=== PATIENT | female | born 1945 | race African-American/Black ===

== ENCOUNTER 2023-12-24 08:21 | Outpatient (AMB) | payer OTHER, SELFPAY ==
--- NOTE | 2023-12-24 08:39 | MHC.OFFVIS ---
Intake Visit Reasons: [employer] TIME WORK[employer] Left shoulder pain Intake Note: Marcela is a 78 year old female who presents to the office today for left shoulder pain. Pt states she was seen by Dr. Lee years ago. The patient did have left shoulder rotator cuff repair surgery approximately 10 years ago. She states that she aggravated her shoulder several months ago while repetitive lifting. She denies any weakness. She has tried Tylenol and anti-inflammatory medicines which gave her minimal relief. She has been doing kejvb-dy-agziti exercises to prevent stiffness. Allergies No Known Allergies Allergy (Verified 12/24/23 09:03) Medication List - Last Reconciled 12/24/23 by Anoop Lee MD allopurinol mg PO indomethacin 50 mg PO TID lisinopril 5 mg PO DAILY metformin 500 mg PO DAILY Physical Exam Const Other: Well-nourished well-developed very friendly female awake alert and oriented x3 in no acute distress Extrem Other: Bilateral upper extremity examination shows good capillary refill, no skin lesions noted, normal sensation light touch Left shoulder examination shows that the surgical incisions are well healed, no erythema, no signs of infection, slightly decreased range of motion when compared to her right shoulder, 4/5 strength with supraspinatus testing, positive impingement signs, no instability Office Procedures Joint Injection/Aspiration Joint Injection/Aspiration Primary Site: left shoulder Prep: site was prepped using aseptic technique Injected: 40 mg of, DepoMedrol and 1% plain lidocaine Procedure: The patient tolerated the procedure well Coding 90346 - Large joint Procedure code (CPT) selection complete Results Reviewed Results Reviewed: X-rays of the patient's left shoulder show bony changes consistent with distal clavicle excision and acromioplasty, 1 suture anchor within the proximal humerus with no signs of loosening Assessment & Plan Assessment & Plan (1) Right shoulder pain: Code(s): M25.511 - Pain in right shoulder Category: Medical Plan Ms. Whiting presents with left shoulder pain most likely due to impingement syndrome and rotator cuff tendinosis. I had a lengthy discussion with the patient regarding the treatment options. The risks and benefits of a left shoulder cortisone injection were discussed at length with the patient. The patient wished to proceed. She tolerated the injection well. She will continue with her fzrtp-zh-tmpahh exercises to prevent stiffness. She will contact me prior to her follow-up appointment in 3 months should any questions or concerns arise. Feel free to call me at any time should questions regarding her orthopedic management arise. I spent 21 minutes in reviewing the patient's records and imaging studies, seeing the patient and documenting in the medical record. Orders: Orders AMB Joint Injection/Aspiration 12/24/23 M25.511 - Pain in right shoulder Coding Level of Care Code Est Pt Level 3 (05989) Diagnoses Right shoulder pain M25.511 CPT Codes Coding - 04155 Large joint: 68326 - Large joint ([id number])
== END 2023-12-24 09:35 | disposition home or self-care (01) ==
PROVIDERS: Visit Provider Orthopaedic Surgery
DX: M25.511 Pain in right shoulder (principal)
CPT/HCPCS: 20610; 99203

== ENCOUNTER 2023-12-24 13:15 | Outpatient (REF) | payer MEDICARE, SELFPAY ==
--- NOTE | ~2023-12-24 | XR_ITS ---
EXAMINATION: XR SHOULDER, LEFT CLINICAL INFORMATION: Pain. COMPARISON: None available. TECHNIQUE: AP external rotation, Grashey, scapular Y, and axillary views of the left shoulder. FINDINGS: There is bony demineralization. The glenohumeral joint is intact. The acromioclavicular and coracoclavicular intervals are normal. There is mild osteoarthritic change of the left acromioclavicular joint. No fracture or dislocation is seen. There is a distal acromial undersurface osteophyte, and there is cortical irregularity of the greater tuberosity of the proximal left humerus. An orthopedic anchor is seen within the left humeral head. No soft tissue calcification or foreign body is seen. There is no left pneumothorax. XR/XR shoulder LT min 2V IMPRESSION: 1. There is mild osteoarthritic change of the left acromioclavicular joint. 2. There are findings suggesting left rotator cuff impingement. There is an orthopedic anchor applied to the left humeral head, for which correlation with patient's Past Surgical History is recommended. Electronically signed by: Canelo Liz MD 01/15/2024 10:08 PM EDT
== END 2023-12-24 13:16 | disposition home or self-care (01) ==
LOC: HO.HOSX 13:15
PROVIDERS: Visit Provider Orthopaedic Surgery
DX: M25.511 Pain in right shoulder (principal)
CPT/HCPCS: 20610; 73030; 99202; J1010

== ENCOUNTER 2024-07-06 07:28 | Outpatient (AMB) | payer MEDICARE, SELFPAY ==
--- OUTSIDE RECORDS SUMMARY | 2024-07-06 07:31 | XMS_ITS | Data Portability ---
Author Organization [place] - [facility], Allergy Address [address] [place] [id number] Care Team Providers Care Grocery Stocker Name Role Phone MIRIAMLAMONT STANLEY Primary Care Provider Assessment Encounter Date Assessment Date Assessment LastModified by Organization Details LastModified Time 01/07/2024 01/07/2024 78-year-old female with hearing difficulties right more than left. She notes difficulty in hoahaoism and background situations. No tinnitus or vertigo. Audiogram reviewed. Very minimal asymmetry in the mid frequencies. Suggest amplification and follow-up testing in 1 year lily Not available 01/07/2024 10:39:17 Plan of Treatment Reminders Order Date Submit Date Provider Last Modified By Organization Details Last Modified Time Details Appointments None record ed. Lab None record ed. Referral None record ed. Procedures None record ed. Surgeries None record ed. Imaging None record ed. Medication Orders None record ed. Patient TargetsNo targets recorded. Patient InstructionsNo instructions recorded. Reason for Referral None Reported. Results Created Date Observation Date Name Description Value Unit Range Abnormal Flag Note LastModifiedBy Organization Detail LastModifiedTime 01/07/20 24 audio gram No observ ation record ed. BARCODE Not Available 2023 14:53:54 Result Notes None recorded. Problems Name Problem SNOMED Code Status Onset Date Resolution Date Notes Provider Name and Address Organization Details Recorded Time Abnormal auditory perception 70717969 Active 2023 HIMANSHU GUERRA MD [address], [phone] [facility] [place] - [facility] 09:39:31 Obstructive sleep apnea syndrome 99774437 Active 2023 HIMANSHU GUERRA MD 100 [facility], [place], [phone], [facility] - [facility] [address] 09:39:35 Sensorineural hearing loss of bilateral ears 933224062 Active 2023 NICK ORNELAS [place], [facility] 100 [facility], [place], [phone], [facility] - [facility] [address] 10:08:11 Problem Notes None recorded. Procedures Surgical History Date Name Laterality Status Provider Name and Address Organization Details Recorded Time Comp Audio with Tymps (63874 & 41246) completed NICK ORNELAS [place], [facility] 100 [facility], [place], [address], [place] - [facility] [address] 01/07/2024 10:07:45 excision of breast completed Aniya Pablo [place] - [facility] [address] 01/07/2024 09:06:18 partial resection of colon completed Aniya Pablo [place] - [facility] [address] 01/07/2024 09:06:47 Imaging Results Imaging Date Name Status [facility]Modified [facility] Details LastModified Time 01/07/2024 audiogram completed BARCODE Information no t available 01/07/2024 14:53:54 Procedure Notes None recorded. Medical Equipment None Reported. Allergies No known drug allergies Medications Name Sig Start Date Stop Date Status Note LastModified by Organization Details LastModified Time metformin 500 mg tablet TAKE 1 TABLET BY MOUTH EVERY DAY 01/06 completed Not Available Not Available Not Available azithromyci n 250 mg tablet TAKE 2 TABLETS BY MOUTH TODAY, THEN TAKE 1 TABLET DAILY FOR 4 DAYS DIRECTED 01/06 completed Not Available Not Available Not Available aspirin 81 mg tablet,fátima yed release TAKE 1 TABLET BY MOUTH EVERY DAY active Not Available Not Available No t Available benzonatate 100 mg capsule TAKE 1 CAPSULE BY MOUTH 3 TIMES DAILY NEEDED FOR COUGH FOR UP TO 10 DAYS. 01/06 completed Not Available Not Available Not Available indomethaci n 50 mg capsule TAKE 2 CAPSULES BY MOUTH 3 TIMES DAILY FOR 2 DAYS. active Not Available Not Available No t Available allopurinol 300 mg tablet TAKE 1 TABLET BY MOUTH EVERY DAY active Not Available Not Available No t Available lisinopril 5 mg tablet TAKE 1 TABLET BY MOUTH EVERY DAY active Not Available Not Available No t Available losartan 100 mg tablet TAKE 1 TABLET BY MOUTH EVERY DAY 01/06 completed Not Available Not Available Not Available metformin ER 500 mg tablet,exte nded release 24 hr TAKE 1 TABLET BY MOUTH EVERY DAY WITH BREAKFAST active Not Available Not Available No t Available hydrochloro thiazide 12.5 mg tablet TAKE 1 TABLET BY MOUTH EVERY DAY 01/06 completed Not Available Not Available Not Available Vitals Date Recorded Body height Body weight Provider Name and Address Organization Details Last Updated DateTime 01/07/2024 162.56 cm 936[address].11 g Aniya Pablo [place] [facility] 01/07/2024 09:02:25 Date Recorded Body mass index (BMI) Provider Name and Address Organization Details Last Updated DateTime 01/07/2024 29 kg/m2 HIMANSHU KLINE MD [address] [place] [address], [phone], [place] - [facility] 01/07/2024 09:40:05 Social History None recorded. Functional Status None recorded. Mental Status None recorded. Family History Nothing Reported. Medical History Condition Response Diabetes Y Cancer Y Hypertension Y Gynecological HistoryNo gynecological history recorded. Obstetrics History GPAL:G 0 P 0 0 0 0 Past Encounters Encounter ID Performer Location Encounter Start Date Encounter Closed Date Diagnosis/Indication Diagnosis SNOMED-CT Code Diagnosis ICD10 Code Diagnosis Note [id number] HIMANSHU KIRBY MD [facility] [address] [phone] 01/07/2024 08:48:26 01/07/2024 10:43:50 Abnormal auditory perception 65899519 H93.291 Obstructiv e sleep apnea syndrome 94522617 G47.33 Consider weight loss and positionin g therapy Sensorineu ral hearing loss of bilateral ears 168851477 H90.3 Audiologic al evaluation results: Right ear: {{Normal N ormal through 2 kHz Mild M oderate Mo derately-s evere Domitila re Profoun d Normalor derline normal sloping to mild#}} {{hearing sloping to a mild slopi ng to a moderate s loping to moderately severe slo ping to severe slo ping to profound f lat high frequency low frequency mid frequency cookie bite ray curve to moderately severe SNHL#}} {{with* se nsorineura l hearing loss with condu ctive hearing loss with mixed hearing loss with}} {{excellen t* good fa ir poor no measurable }} word recognitio n. Left ear: {{Normal N ormal through 2 kHz Mild M oderate Mo derately-s evere Domitila re Profoun d Borderli ne normal sloping to mild SNHL#}} {{hearing sloping to a mild slopi ng to a moderate s loping to moderately severe slo ping to severe slo ping to profound f lat high frequency low frequency mid frequency cookie bite ray curve drop ping to severe#}} {{with* se nsorineura l hearing loss with condu ctive hearing loss with mixed hearing loss with}} {{excellen t* good fa ir poor no measurable }} word recognitio n. Tympanomet ry: Right Ear:{{Type A* Type As Type Ad Type C Type C, shallow & rounded Ty pe B Type B with large volume Cou ld not maintain a hermetic seal}} Left Ear:{{Type A* Type As Type Ad Type C Type C, shallow & rounded Ty pe B Type B with large volume Cou ld not maintain a hermetic seal}}Rec. : Trial amplificat ion Health Concerns Section Related Observation LastModified by Organization Detai ls LastModified Time None Recorded Concern Status LastModified by Organization Details LastModified Time None Recorded Advance Directives Directive None Recorded Payers Encounter Date Sequence Insurance Name Policy Number Policy Huerta Covered Member ID Huerta Member ID Guarantor Name 01/07/2024 1 [facility] - MEDICARE PREFERRED (MEDICARE REPLACEMENT PPO) [employer] Marcela Whiting [id number] Marcela Whiting Notes Date Note Type Note Provider Name and Address Organization Details Recorded Time 01/07/2024 text/html Notes HL right more than left for more than one year. She denies tinnitus or vertigo. History of sleep apnea but intolerant of CPAP. HIMANSHU KLINE MD [address] [place] [address], [phone], [facility] 01/07/2024 10:39:31 OBGyn Episode No OBEpisode recorded.
--- OUTSIDE RECORDS SUMMARY | 2024-07-06 07:31 | XMS_ITS | Clinical Summary ---
Author Organization [place] [address] Tammy rowan [facility] Address [address] [place] [phone] Phone Care Team Providers Care Grounds Maintenance Manager Name Role Phone Eugenia Phelps DO Primary Care Provider [phone] Allergies No known active allergies Medications allopurinoL (ZYLOPRIM) 300 mg tablet Take 1 tablet (300 mg total) by mouth 1 (one) time each day. 12/23/2023 Active metFORMIN XR (GLUCOPHAGE-XR) 500 mg 24 hr tablet Take 1 tablet (500 mg total) by mouth. 12/23/2023 Active losartan (COZAAR) 100 mg tablet Take 1 tablet (100 mg total) by mouth 1 (one) time each day. 30 each 2 03/17/2024 Active Active Problems Problem Noted Date Diagnosed Date Primary hypertension 03/17/2024 Type 2 diabetes mellitus, wi thout long-term current use of insulin 03/17/2024 Chronic gout of right knee 03/17/2024 History of invasive breast cancer 03/17/2024 Encounters Date Type Department Care Team Description 05/12/2024 10:55 AM EST - 05/12/2024 11:59 PM EST Hospital Encounter Walk-In Clinic XR - [place] [address] [place] [phone] Acute cough Discharge Disposition: Home or Self Care 05/12/2024 10:15 AM EST Office Visit Walk-In Clinic - [place] [address] [place] [phone] Jorge Rae PA Acute cough (Primary Dx) 04/21/2024 11:00 AM EST [facility] [address] [place], [place] [phone] Jessica Torrez NP Primary hypertension (Primary Dx); Type 2 diabetes mellitus without complication, without long-term current use of insulin (CMS/HCC); Chronic gout of right knee, unspecified cause; Sleep disturbance from Last 3 Months Surgical History Surgery Date Site/Laterality Comments OTHER SURGICAL HISTORY 09/06/2021 Right PROCEDURE: HISTORY OTHER; COMMENT: partial mastectomy OTHER SURGICAL HISTORY N/A PROCEDURE: CA COLONOSCOPY FLX W/ENDOSCOPIC MUCOSAL RESECTION; COMMENT: 2012 malignant polyp found durin colonoscopy Medical History Medical History Date Comments Essential (primary) hypertension DX:Essential (primary) hypertension Type 2 diabetes mellitus wit hout complications (CMS/HCC) DX:Type 2 diabetes mellitus without complications (HCC) Gout DX:Gout Family History Medical History Relation Name Comments Breast cancer Daughter x2 oldest daughte r Other: Other Daughter x2 devics disease Hypertension Father No Known Problems Mother Relation Name Status Comments Daughter x2 Alive Father Mother Social History Tobacco Use Types Packs/Day Years Used Date Smoking Tobacco: Never Smokeless Tobacco: Never Tobacco Cessation:Counseling Given: Not Answered Alcohol Use Standard Drinks/Week Comments Yes 0 (1 standard drink = 0.6 oz pur e alcohol) Comments No Sex and Gender Information Value Date Recorded Sex Assigned at Not on file Legal Sex Female 9:26 AM EST Gender Identity Not on file Sexual Orientation Not on file Obstetrics History Last Filed Vital Signs Vital Sign Reading Time Taken Comments Blood Pressure 139/89 05/12/2024 10:19 AM EST Pulse 91 05/12/2024 10:19 AM EST Temperature 36.8 ??C (98.3 ??F) 05/12/2024 1 0:19 AM EST Respiratory Rate - - Oxygen Saturation 99% 05/12/2024 10: 19 AM EST Inhaled Oxygen Concentration - - Weight 75.7 kg (166 lb 12.8 oz) 024 11:02 AM EST Height 165.1 cm (5' 5 ) 04/21/2024 11:0 2 AM EST Body Mass Index 27.76 04/21/2024 11:02 AM EST Plan of Treatment Upcoming Encounters Date Type Department Care Team (Late st Contact Info) Description 08/25/2024 10:00 AM EDT Office Visit Internal Medicine - [facility] [address] [place], [place] [phone] Jessica Torrez NP [address] [place] [address] 01/11/2025 1:00 PM EDT Office Visit General Surgery - [place] [address] [place] [phone] Radha Mishra MD [address] [facility] [address] [place] [address] Health Maintenance Due Date Last Done Comments Diabetes: Annual Foot Exam 10/13/1955 Diabetes: Annual Retina Eye Exam 10[birth year]13/1955 Depression Screening 04/07/2022 Falls Risk Assessment 04/07/2022 Medicare Annual Wellness Visit 04/07/2022 Social Influencers of Health Screening 04/07/2022 COVID-19 Vaccine ( season) 2024 02/14/2023, 03/15/2022, 08/03/2021, Additional history exists Influenza Vaccine (#1) 2024 , 01/23/2022, 01/18/2021, Additional history exists Zoster Vaccines (2 of 2) 02/18/2024 12/24/2023 Diabetes: Blood Sugar Control Test (HGBA1C) 09/16/2024 03/19/2024, 12/26/2023, 12/26/2023 Diabetes: Annual Urine Albumin-Creatinine Ratio (uACR) 03/19/2025 03/19/2024 Diabetes: Annual GFR (Glomerular Filtration Rate) 03/19/2025 03/19/2024, 12/26/2023 Hypertension/CHF/CAD Annual BMP Blood Test 03/19/2025 03/19/2024, 12/26/2023 Cholesterol Screening (Lipid Panel) 03/19/2029 03/19/2024, 07/11/2023, 07/11/2023 Osteoporosis Screening (Bone Density Screening) 12/28/2031 12/27/2021, 04/09/2019 DTaP,Tdap,and Td Vaccines (2 - Td or Tdap) 07/07/2033 07/08/2023 Pneumococcal Vaccine: 50+ Years Completed 05/02/2023, 05/02/2023, 05/16/2022, Additional history exists RSV Immunization Patients 60+ Years Old Completed 12/24/2023 HIB Vaccines Aged Out No longer eligi ble based on patient's age to complete this topic HPV Vaccines Aged Out No longer eligi ble based on patient's age to complete this topic Hepatitis A Vaccines Aged Out No long er eligible based on patient's age to complete this topic Hepatitis B Vaccines Aged Out No long er eligible based on patient's age to complete this topic IPV Vaccines Aged Out No longer eligi ble based on patient's age to complete this topic MMR Vaccines Aged Out No longer eligi ble based on patient's age to complete this topic Meningococcal ACWY Vaccine Aged Out N o longer eligible based on patient's age to complete this topic Meningococcal B Vacine Aged Out No lo nger eligible based on patient's age to complete this topic RSV Immunization Patients Under 20 months Aged Out No longer eligible based on patient's age to complete this topic Varicella Vaccines Aged Out No longer eligible based on patient's age to complete this topic Procedures Procedure Name Priority Date/Time Associated Diagnosis Comments XR CHEST 2 VIEWS STAT 05/12/2024 11:0 3 AM EST Acute cough POC RAPID [id number], MOLECULAR Routine 05/12/2024 10:55 AM EST Acute cough MICROALBUMIN CREATININE URINE RATIO Routine 03/19/2024 9:59 AM EST Type 2 diabetes mellitus with other specified complication, without long-term current use of insulin ([facility]) BASIC METABOLIC PANEL Routine 03/19/2024 9:59 AM EST Primary hypertension HEMOGLOBIN A1C Routine 03/19/2024 9:59 AM EST Type 2 diabetes mellitus with other specified complication, without long-term current use of insulin (CMS/HCC) LIPID PANEL WITH REFLEX TO DIRECT LDL Routine 03/19/2024 9:59 AM EST Type 2 diabetes mellitus with other specified complication, without long-term current use of insulin ([facility]) [facility] DEXA AXIAL SKELETON Routine 12/27/2021 10:04 AM EDT Encounter for screening for osteoporosis from Last 3 Months or Most Recently Relevant to Health Maintenance Results * XR Chest 2 Views (05/12/2024 11:03 AM EST) Anatomical Region Laterality Modality Body Radiographic Skylar ging 05/12/2024 12:3 6 PM EST Narrative 05/12/2024 12:37 PM EST Chest, 2 views. History productive cough. No prior chest radiographs are available for comparison. There is eventration of the right hemidiaphragm. There is no pneumothorax, pleural effusions or focal consolidations. Heart is normal in size. There are post operative changes in the shoulders bilaterally. CONCLUSIONS: No acute radiographic abnormalities in the chest. -------- FINAL REPORT -------- Dictated By: Yahaira Davison Dictated Date: 05/12/2024 12:36 ET Assigned Physician: Yahaira Davison Reviewed and Electronically Signed By: Yahaira Davison Signed Date: 05/12/2024 12:37 ET Workstation ID: [id number] Transcribed By: Self Edit Transcribed Date: 05/12/2024 12:36 ET Procedure Note Yahaira Davison MD - 05/12/2024 Chest, 2 views. History productive cough. No prior chest radiographs are available for comparison. There is eventration of the right hemidiaphragm. There is no pneumothorax,pleural effusions or focal consolidations. Heart is normal in size. Thereare post operative changes in the shoulders bilaterally. CONCLUSIONS: No acute radiographic abnormalities in the chest. -------- FINAL REPORT -------- Dictated By: Yahaira Davison Dictated Date: 05/12/2024 12:36 ET Assigned Physician: Yahaira Davison Reviewed and Electronically Signed By: Yahaira Davison Signed Date: 05/12/2024 12:37 ET Workstation ID: [id number] Transcribed By: Self Edit Transcribed Date: 05/12/2024 12:36 ET us Jorge VELEZ IMG XR PROCEDURES Final Re sult * Poc Rapid [id number], MOLECULAR (05/12/2024 10:55 AM EST) COVID-19/SARS- COV-2 Rapid POC Negative Negative Internal Control Pass Yes Yes Swab Nasopharyngeal structure / Unknown 05/12/2024 10:55 AM EST Jorge VELEZ POINT OF CARE TEST ENTER/E DIT ORDERABLES Final Result * Lipid panel with reflex to direct LDL (03/19/2024 9:59 AM EST) Pathologist [facility] Cholesterol 164 0 - 200 mg/dL LAB CHEMISTRY METHOD 03/19/2024 11:58 AM [facility] Triglycerides 145 0 - 150 mg/dL LAB CHEMISTRY METHOD 03/19/2024 11:58 AM [facility] HDL 48 >=40 mg/dL LAB CHEMISTRY METHOD 03/19/2024 11:58 AM [facility] LDL Calculated 87 0 - 100 mg/dL LAB CHEMISTRY METHOD 03/19/2024 11:58 AM [facility] VLDL Cholesterol Bryan 29 mg/dL LAB CHEMISTRY METHOD 03/19/2024 11:58 AM [facility] Non HDL Chol. (LDL+VLDL) 116 <145 mg/dL LAB CHEMISTRY METHOD 03/19/2024 11:58 AM [facility] Chol/HDL Ratio 3.4 0.0 - 4.4 LAB CHEMISTRY METHOD 03/19/2024 11:58 AM [facility] Blood Venous blood specimen / Unknown Venipuncture / Unknown 03/19/2024 9:59 AM EST 03/19/2024 9:59 AM EST [facility] BLOOD [facility]ABLES Final Res ult [facility] [address] [place] [address], [place] [phone] * (ABNORMAL) Microalbumin creatinine urine ratio (03/19/2024 9:59 AM EST) Creatinine, Urine 175.0 mg/dL LAB CHEMISTRY METHOD 03/19/2024 12:27 PM EST [facility] Microalb, Ur 36.2(H) 0.0 - 29.0 mg/L LAB CHEMISTRY METHOD 03/19/2024 12:27 PM EST [facility] Microalb/Crea t Ratio 21 <30 mg/g creat LAB CHEMISTRY METHOD 03/19/2024 12:27 PM EST [facility] Urine Urine specimen obtained by clean catch procedure / Unknown Non-blood Collection / Unknown 03/19/2024 9:59 AM EST 03/19/2024 9:59 AM EST [facility] URINE ORDERABLES Final Res ult [facility] [address] [place] [address], [place] [phone] * Hemoglobin A1c (03/19/2024 9:59 AM EST) Hemoglobin A1C 6.4 <6.5 % LAB CHEMISTRY METHOD 03/20/2024 9:58 AM EST [facility] Mean Bld Glu Estim. 137 mg/dL LAB CHEMISTRY METHOD 03/20/2024 9:58 AM EST [facility] Blood Venous blood specimen / Unknown Venipuncture / Unknown 03/19/2024 9:59 AM EST 03/19/2024 9:59 AM EST us Eugeina Phelps DO LAB BLOOD ORDERABLES Final Res ult [facility] [address] [place] [address], * (ABNORMAL) Basic metabolic panel (03/19/2024 9:59 AM EST) Sodium 142 133 - 145 mmol/L LAB CHEMISTRY METHOD 03/19/2024 11:56 AM [facility] Potassium 4.5 3.5 - 5.5 mmol/L LAB CHEMISTRY METHOD 03/19/2024 11:56 AM [facility] Chloride 110 96 - 110 mmol/L LAB CHEMISTRY METHOD 03/19/2024 11:56 AM [facility] CO2 28 21 - 32 mmol/L LAB CHEMISTRY METHOD 03/19/2024 11:56 AM [facility] Anion Gap 4 3 - 11 LAB CHEMISTRY METHOD 03/19/2024 11:56 AM [facility] Glucose 102(H) 70 - 100 mg/dL LAB CHEMISTRY METHOD 03/19/2024 11:56 AM [facility] BUN 14 5 - 25 mg/dL LAB CHEMISTRY METHOD 03/19/2024 11:56 AM [facility] Creatinine 1.03 0.50 - 1.10 mg/dL LAB CHEMISTRY METHOD 03/19/2024 11:56 AM [facility] eGFR 55(L) >=60 mL/min/1. 73m2 LAB CHEMISTRY METHOD 03/19/2024 11:56 AM [facility] Comment:Calculation based on the??Chronic Kidney Disease Epidemiology Collaboration (CKD-EPI) equation refit??without adjustment for race. BUN/Creatinine Ratio 13.6 LAB CHEMISTRY METHOD 03/19/2024 11:56 AM [facility] Calcium 9.6 8.5 - 10.5 mg/dL LAB CHEMISTRY METHOD 03/19/2024 11:56 AM [facility] Blood Venous blood specimen / Unknown Venipuncture / Unknown 03/19/2024 9:59 AM EST 03/19/2024 9:59 AM EST Eugenia Phelps DO LAB BLOOD ORDERABLES Final [facility]) [facility] [address] [place] [address], * KIM DEXA AXIAL SKELETON (12/27/2021 10:04 AM EDT) Anatomical Region Laterality Modality Mammography 12/27/2021 9:22 AM EDT Narrative 12/27/2021 10:04 AM EDT [facility] Diagnostic Imaging Department [address] [place] [address] Patient: ??INO GIBBS ?/Age/Sex: 1945 - 76 - F Unit#: ??[id number] ? Location/Status: ??SPDIMAM/REG CLI ? Mnemonic/Ordering Site: ??MAMDEXAAX/SPMAM Ordering Physician: ??KATIUSKA WELLINGTON MD Kim Dexa Axial Skeleton - 12/27/[address]41 HISTORY: ??The patient is a 76-year-old postmenopausal female with clinical concern for metabolic bone disease. FINDINGS: ??Dual energy x-ray absorptiometry of the lumbar spine and femurs is performed. The mean bone mineral density at L1-2 is 1.103 gm/cm2 which is 95% of that of young normals and 102% of that of age matched controls. This yields a T- score of -0.5 and a Z-score of 0.2 and there is therefore no evidence of osteoporosis or osteopenia here. The mean bone mineral density of the femurs bilaterally is 0.950 gm/cm2 which is 94% of that of young normals and 102% of that of age matched controls. ??This yields a T-score of -0.5 and a Z-score of 0.2 and there is therefore no evidence of osteoporosis or osteopenia here. ??However, the T-score of the right femoral neck is -1.7 and that of the left femoral neck is -1.2 which is diagnostic of osteopenia. IMPRESSION: 1. Osteopenia. ??There has been a decrease of 3.9% in bone mineral density in the lumbar spine since the prior examination of 04/09/2019. ??There has been an increase of 2.5% in bone mineral density in the right femur and an increase of 1.5% in bone mineral density in the left femur. 2. FRAX analysis yields a 10-year probability of major osteoporotic fracture of 5.9% and a 10-year probability of hip fracture of 1.4%. Code 91287 Dictating Physician: ??ENID LONG MD Electronically Signed by: ??ENID LONG MD Dic Date/Time: ??12/27/21 1002 Sign date/Time: ??12/27/21 1004 Procedure Note Enid Long MD - 04/24/2022 [facility] Diagnostic Imaging Department [address] [place] [id number] Patient: INO GIBBS/Age/Sex: 1945 - 76 - F Unit#: [id number] Location/Status: SPDIMAM/REG CLI [facility] Ordering Physician: KATIUSKA WELLINGTON MD Kim Dexa Axial Skeleton - 12/27/21941 HISTORY: The patient is a 76-year-old postmenopausal female withclinical concern for metabolic bone disease. FINDINGS: Dual energy x-ray absorptiometry of the lumbar spine and femursis performed. The mean bone mineral density at L1-2 is 1.103 gm/cm2 which is95% of that of young normals and 102% of that of age matched controls. Thisyields a T- score of -0.5 and a Z-score of 0.2 and there is therefore no evidence of osteoporosis or osteopenia here. The mean bone mineral density of the femurs bilaterally is 0.950 gm/cg1rnehk is 94% of that of young normals and 102% of that of age matched controls.This yields a T-score of -0.5 and a Z-score of 0.2 and there is therefore noevidence of osteoporosis or osteopenia here. However, the T-score of the rightfemoral neck is -1.7 and that of the left femoral neck is -1.2 which is diagnosticof osteopenia. IMPRESSION: 1. Osteopenia. There has been a decrease of 3.9% in bone mineral densityin the lumbar spine since the prior examination of 04/09/2019. There has beenan increase of 2.5% in bone mineral density in the right femur and anincrease of 1.5% in bone mineral density in the left femur. 2. FRAX analysis yields a 10-year probability of major osteoporoticfracture of 5.9% and a 10-year probability of hip fracture of 1.4%. Code 73685 Dictating Physician: ENID LONG MD Electronically Signed by: ENID LONG MD Dic Date/Time: 12/27/21 1002 Sign date/Time: 12/27/21 1004 Katiuska Wellington MD IMG BI PROCEDURES Final Result from Last 3 Months or Most Recently Relevant to Health Maintenance Insurance [employer] Care Teams Grounds Maintenance Manager Relationship Specialty Start Date End Date Eugenia Phelps DO [address] [place], [place] [address] [place] [address] PCP - General 12/11/22
--- OUTSIDE RECORDS SUMMARY | 2024-07-06 07:31 | XMS_ITS | Clinical Summary ---
Author Organization [facility] Address [address] [place] [address] Care Team Providers Care Med Spa Manager Name Role Phone Silviano Wellington MD Primary Care Provider [phone] Allergies No known active allergies Medications Medication Sig Dispensed Refills Start Date End Date Status losartan (COZAAR) 100 MG tablet 0 11/26/2019 Active metFORMIN (GLUCOPHAGE) tablet 500 mg 0 10/31/2019 Active hydroCHLOROthiazide (HYDRODIURIL) tablet 12.5 mg 0 10/31/2019 Active Active Problems Problem Noted Date Diagnosed Date Impingement syndrome of left shoulder 12/23/2019 Subacromial bursitis of left shoulder joint 12/04 Social History Tobacco Use Types Packs/Day Years Used Date Smoking Tobacco: Never Smokeless Tobacco: Never Alcohol Use Standard Drinks/Week Comments Yes 0 (1 standard drink = 0.6 oz pur e alcohol) Social Sex and Gender Information Value Date Recorded Sex Assigned at Not on file Gender Identity Not on file Sexual Orientation Not on file Job Start Date Occupation Industry Not on file Not on file Not on file Last Filed Vital Signs Vital Sign Reading Time Taken Comments Blood Pressure 133/94 09/19/2021 1:56 PM EDT Pulse 89 09/19/2021 1:56 PM EDT Temperature 37 ??C (98.6 ??F) 09/19/2021 1:56 PM EDT Respiratory Rate - - Oxygen Saturation 96% 09/19/2021 1:56 PM EDT Inhaled Oxygen Concentration - - Weight 75.8 kg (167 lb) 09/19/2021 1:56 PM EDT Height 163.8 cm (5' 4.5 ) 09/19/2021 1:56 PM EDT Body Mass Index 28.22 09/19/2021 1:56 PM EDT Plan of Treatment Health Maintenance Due Date Last Done Comments COVID-19 Vaccine (#1) 04/14/1946 Depression Screening 1955 Preventative Health Evaluation 10/13/1961 DTap / Tdap / Td (1 - Tdap) 10/13/1962 Shingrix-Zoster Vaccine (1 of 2) 10/13/1993 Fall Risk Assessment 10/13/2008 Osteoporosis Screening (DEXA Scan) 10/13/2008 Pneumococcal Vaccine (1 of 1 - PCV) 10/13/2008 RSV Adult > 60+ Yrs or Pregn ant (1 - 1-dose 75+ series) 10/13/2018 Influenza Vaccine (#1) 2024 Hepatitis B Vaccines Aged Out No long er eligible based on patient's age to complete this topic RSV Ped < 20 months Aged Out No longe r eligible based on patient's age to complete this topic Care Teams Med Spa Manager Relationship Specialty Start Date End Date Silviano Wellington MD [address] [place] [address] PCP - General Internal Medicine 12/20/19
--- NOTE | 2024-07-06 07:42 | MHC.OFFVIS ---
Intake Visit Reasons: OV-Left shoulder pain Intake Note: Marcela is an 78 year old female who presents today for a left shoulder pain follow up with history of left shoulder rotator cuff repair approximately 10 years ago. At her last visit, 12/24/23, patient was given a cortisone injection. Patient reports that the injection gave her fairly good relief. Her pain has returned. She denies any weakness. She has tried Tylenol and anti-inflammatory medicines as well as physical therapy exercises which gave her mild relief. She would like to hold off on further surgery if at all possible. Allergies No Known Allergies Allergy (Verified 07/06/24 07:47) Medication List - Last Reconciled 07/06/24 by Anoop Lee MD allopurinol mg PO indomethacin 50 mg PO TID lisinopril 5 mg PO DAILY metformin 500 mg PO DAILY Physical Exam Const Other: Well-nourished well-developed very friendly female awake alert and oriented x3 in no acute distress Extrem Other: Bilateral upper extremity examination shows good capillary refill, no skin lesions noted, normal sensation light touch Left shoulder examination shows almost full range of motion when compared to her right shoulder, 4+ out of 5 strength with supraspinatus testing, positive impingement signs, no instability Office Procedures AMB Joint Injection/Aspiration Joint Injection/Aspiration Primary Site: left shoulder Prep: site was prepped using aseptic technique Injected: 40 mg of, DepoMedrol and 1% plain lidocaine Procedure: The patient tolerated the procedure well Coding 36139 - Large joint Procedure code (CPT) selection complete Assessment & Plan Assessment & Plan (1) Impingement syndrome of left shoulder: Code(s): M75.42 - Impingement syndrome of left shoulder Category: Medical Plan Ms. Whiting presents with left shoulder pain due to impingement syndrome. The risks and benefits of a left shoulder cortisone injection were discussed at length with the patient. The patient wished to proceed. She tolerated the injection well. She will continue with her home stretching program to prevent stiffness. She will contact me prior to her follow-up appointment in 3 months should any questions or concerns arise. Feel free to call me at any time should questions regarding her orthopedic management arise. I spent 20 minutes in reviewing the patient's records and imaging studies, seeing the patient and documenting in the medical record. Orders: Orders AMB Joint Injection/Aspiration Today M75.42 - Impingement syndrome of left shoulder Coding Level of Care Code Est Pt Level 3 (38676) Complex EM visit Add On G2211 Diagnoses Impingement syndrome of left shoulder M75.42 CPT Codes Coding - 21511 Large joint: 08020 - Large joint ([id number])
== END 2024-07-06 07:56 | disposition home or self-care (01) ==
PROVIDERS: PCP Internal Medicine; Visit Provider Orthopaedic Surgery
DX: M75.42 Impingement syndrome of left shoulder (principal)
CPT/HCPCS: 20610; 99213

== ENCOUNTER → 2024-07-06 07:28 | Outpatient (BNVA) | payer MEDICARE, SELFPAY | PROVIDERS: PCP Internal Medicine; Visit Provider Orthopaedic Surgery | DX: M75.42 Impingement syndrome of left shoulder (principal) | CPT/HCPCS: 20610; 99212; J1010; J2003 ==

== ENCOUNTER 2024-10-06 07:50 | Outpatient (AMB) | payer MEDICARE, SELFPAY ==
--- NOTE | 2024-10-06 07:52 | MHC.OFFVIS ---
Intake Visit Reasons: inj-left shoulder inj-last 07/06/24 Intake Note: Marcela is an 78 year old female who presents with complaints of left shoulder pain. She describes her pain as sharp in nature. She has had cortisone injections in the past which gave her fairly good relief. She wishes to hold off on surgery if at all possible. She has tried Tylenol and anti-inflammatory medicines which gave her mild relief. Allergies No Known Allergies Allergy (Verified 10/06/24 08:01) Medication List - Last Reconciled 10/06/24 by Anoop Lee MD allopurinol mg PO indomethacin 50 mg PO TID lisinopril 5 mg PO DAILY metformin 500 mg PO DAILY Physical Exam Const Other: Well-nourished well-developed very friendly female awake alert and oriented x3 in no acute distress Extrem Other: Left shoulder examination shows slightly decreased range of motion when compared to her right shoulder, 4+ out of 5 strength with supraspinatus testing, positive impingement signs, no instability Office Procedures AMB Joint Injection/Aspiration Joint Injection/Aspiration Primary Site: left shoulder Prep: site was prepped using aseptic technique Injected: 40 mg of, DepoMedrol and 1% plain lidocaine Procedure: The patient tolerated the procedure well Coding 68437 - Large joint Procedure code (CPT) selection complete Assessment & Plan Assessment & Plan (1) Impingement syndrome of left shoulder: Code(s): M75.42 - Impingement syndrome of left shoulder Category: Medical Plan Ms. Whiting presents with left shoulder pain due to impingement syndrome. The risks and benefits of a left shoulder cortisone injection were discussed at length with the patient. The patient wished to proceed. She tolerated the injection well. She will continue with her home stretching program. She will contact me prior to her follow-up appointment in 3 months should any questions or concerns arise. Feel free to call me at any time should questions regarding her orthopedic management arise. I spent 20 minutes in reviewing the patient's records and imaging studies, seeing the patient and documenting in the medical record. Orders: Orders AMB Joint Injection/Aspiration Today M75.42 - Impingement syndrome of left shoulder Coding Level of Care Code Est Pt Level 3 (20342) Complex EM visit Add On G2211 Diagnoses Impingement syndrome of left shoulder M75.42 CPT Codes Coding - 89821 Large joint: 23323 - Large joint ([id number])
--- OUTSIDE RECORDS SUMMARY | 2024-10-06 07:53 | XMS_ITS | Clinical Summary ---
Author Organization [facility] Address [address] [place] [address] Care Team Providers Care Transport Manager Name Role Phone Silviano Wellington MD Primary Care Provider [phone] Allergies No known active allergies Medications Medication [...] - 1-dose 75+ series) 10/13/2018 Influenza Vaccine (Season Ended) 2025 Hepatitis B Vaccines Aged Out No long er eligible based on patient's age to complete this topic RSV Ped < 20 months Aged Out No longe r eligible based on patient's age to complete this topic Care Teams Transport Manager Relationship Specialty Start Date End Date Silviano Wellington MD [address] [place] [address] PCP - General Internal Medicine 12/20/19
== END 2024-10-06 08:25 | disposition home or self-care (01) ==
LOC: HO.HOS 07:51
PROVIDERS: PCP Internal Medicine; Visit Provider Orthopaedic Surgery
DX: M75.42 Impingement syndrome of left shoulder (principal)
CPT/HCPCS: 20610; 99213

== ENCOUNTER → 2024-10-06 07:50 | Outpatient (BNVA) | payer MEDICARE, SELFPAY | PROVIDERS: PCP Internal Medicine; Visit Provider Orthopaedic Surgery | DX: M75.42 Impingement syndrome of left shoulder (principal) | CPT/HCPCS: 20610; 99212; J1010; J2003 ==

== ENCOUNTER 2025-03-10 12:48 | Outpatient (REF) | payer MEDICARE, SELFPAY ==
--- OUTSIDE RECORDS SUMMARY | 2025-03-08 13:15 | XMS_ITS | Encounter Summary ---
Author Organization [facility] Address [address] [place] [address] Care Team Providers Care Tanker Truck Driver Name Role Phone Eugenai Phelps DO Primary Care Provider [phone] Reason for Referral * Imaging (Routine) - Authorized Specialty Diagnoses / Procedures Referred By Edith burnett Referred To Contact Radiology Diagnoses History of invasive breast cancer Encounter for screening mammogram for malignant neoplasm of breast Procedures MG Mammo Digital Screening bilat Radha Cottrell MD [address] [place] [address] Phone: tel: fax: [address] [address] Phone: tel: Referral ID Status Reason Start Date Expiration Date V isits Requested Visits Authorized [id number] Authorized 03/08/2025 03/08/2026 1 1 Reason for Visit * Reason Comments Breast Cancer 1 year follow up Encounter Details Date Type Department Care Team ([facility] st Contact Info) Description 03/08/2025 1:15 PM EST Office Visit General Surgery - [place] [address] [facility] [address] [place] [phone] Radha Cottrell MD [address] [place] [phone] History of invasive breast cancer (Primary Dx); Encounter for screening mammogram for malignant neoplasm of breast Social History Tobacco Use Types Packs/Day Years Used Date Smoking Tobacco: Never Smokeless Tobacco: Never Alcohol Use Standard Drinks/Week Comments Yes 0 (1 standard drink = 0.6 oz pur e alcohol) Housing Instability Answer Date Recorde d Are you worried that in the next 2 months you may not have stable housing? No 08/24/2024 Food Access & Nutrition Answer Date Rec orded Do you have access to a vari ety of food including fruits and vegetables? Yes 08/24/2024 Access to Healthcare Answer Date Record ed Within the last 3 months, ho w many times did you visit the emergency department for your medical care? 0 08/24/2024 Health Literacy Answer Date Recorded How often do you need to hav e someone help you when you read instructions, pamphlets, or other written material from your doctor or pharmacy? Never 08/24/2024 Caregiver: How often do you need to have someone help you when you read instructions, pamphlets, or other written material from your doctor or pharmacy? Not on file 08/24/2024 Financial Risk Answer Date Recorded How hard is it for you to pa y for the very basics like food, housing, medical care, and air conditioning / heating? Not very hard 08/24/2024 Transportation Answer Date Recorded Has the lack of transportati on kept you from meetings, work, or from getting things needed for daily living? No Has the lack of transportati on kept you from medical appointments or from getting medications? No 08/24/2024 Social Isolation Answer Date Recorded How often do you feel lonely or isolated from th ose around you? Never 08/24/2024 Food Risk Answer Date Recorded Within the past 12 months we worried whether our food would run out before we got money to buy more. Never true 08/24/2024 Within the past 12 months th e food we bought just didn't last and we didn't have money to get more. Never true 08/24/2024 Dependent Care Answer Date Recorded Do you need help finding or paying for care for your loved ones. For example, child abuse worker or elderly care for an older adult? No 08/24/2024 Education Answer Date Recorded Do you think completing more education or training, like finishing a GED, going to college, or learning a trade, would be helpful for you? No 08/24/2024 Employment and Income Answer Date Recor ded During the last four weeks, have you been actively looking for work? No 08/24/2024 Living Situation Answer Date Recorded What is your living situation? Unrecognized valu e 08/24/2024 Comments No Sex and Gender Information Value Date Recorded Sex Assigned at Female 03/09/2025 1:39 PM EST Legal Sex Female 9:26 AM EST Gender Identity Not on file Sexual Orientation Not on file documented as of this encounter Last Filed Vital Signs Vital Sign Reading Time Taken Comments Blood Pressure 167/90 03/08/2025 12:56 PM EST Pulse 81 03/08/2025 12:56 PM EST Temperature 36.1 C (96.9 F) 03/08/2025 12:56 PM EST Respiratory Rate - - Oxygen Saturation - - Inhaled Oxygen Concentration - - Weight 75.9 kg (167 lb 6.4 oz) 03/08/2025 12:56 PM EST Height 165.1 cm (5' 5 ) 03/08/2025 12:56 PM EST Body Mass Index 27.86 03/08/2025 12:56 PM EST documented in this encounter Progress Notes * Radha Cottrell MD - 03/08/2025 1:15 PM EST Reason for visit: Follow-up - breast cancer HPI: This is a very pleasant 78 yr.-old patient who underwent right BCS in September 2021. She presents today for follow-up. She is unaccompanied in the office. She has no breast related complaints. She performs SBE. She denies new palpable mass, nipple discharge, change in skin of the breast. Some occasional pains at lumpectomy site, self limiting. No recent unintentional weight loss, rash, easy bruising, prolonged bleeding, night sweats, swelling in the neck or under the arms. She developed left foot drop of unclear etiology. Workup is ongoing. She is otherwise in her normal state of health. Her daughter was diagnosed with a more aggressive form of breast cancer at age 61. Finished treatment and doing well. She walks around her home and stairs, does a walking group in nice weather. 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 Margins uninvolved. Biopsy sitechanges. No tumor seen in 2 sentinel lymph nodes. Intranodal black and green pigment suggestive of tattoo. pTis N0. ER positive, VT positive. Stage (PPS): 0 Recurrence score: N/A Radiation therapy history: Declined. Chemotherapy history: N/A Endocrine therapy history: Declined. Oncologist: Amilcar Radiation Oncologist: Lukas Most recent mammogram, as below. There have been no additional interval changes in past medical/surgical history, medications, social history, or family medical history. Please refer to EMR or my prior note for additional details. Active medications reviewed in EMR. ROS The following symptom list was reviewed with the patient: GENERAL: fevers, chills, sweats, change in weight, fatigue or malaise HEENT: changes in hearing or vision, nasal problems NECK: lumps, goiter, or significant neck swelling RESPIRATORY: cough, wheezing, shortness of breath, pleuritic chest pain CARDIOVASCULAR: chest pain, leg swelling or palpitations GI: abdominal discomfort, blood in stools or black stools : dysuria, frequency or incontinence MUSCULOSKELETAL: joint pain or swelling, back pain, or muscle pain SKIN: lesions, rash or itching PSYCH: sleep disturbance or depression HEMATOLOGY: prolonged bleeding, easy bruisability or swollen nodes ENDOCRINE: cold or heat intolerance, polyuria, polydipsia or goiter NEURO: persistent headache, syncope, seizures, weakness or numbness BREAST (females): lumps, discharge, pain or change in skin BUSINESS RELATIONS MANAGER (females): abnormal vaginal bleeding or abnormal vaginal discharge The patient reported the following as positive: See HPI; none. PHYSICAL EXAM: Visit Vitals BP (!) 167/90 (BP Location: Left arm, Patient Position: Sitting, BP Cuff Size: Small adult) Pulse 81 Temp 36.1 ??C (96.9 ??F) (Temporal) Ht 1.651 m (65 ) Wt 75.9 kg (167 lb 6.4 oz) BMI 27.86 kg/m?? OB Status Postmenopausal Smoking Status Never BSA 1.83 m?? GENERAL: Awake, alert, and in no acute distress. HEAD: Normocephalic, atraumatic. EYES: Pupils equal and round. Anicteric sclera. Conjunctiva normal. NECK: Thyroid midline and without goiter, nodule, tenderness, or mass. No appreciable adenopathy. CHEST: Non-tender. LUNGS: Labored breathing. CBE: The exam procedure was described and informed consent was obtained. Examined in supine position. Grossly normal breast symmetry. Overall appearance of skin, nipples, and areolas is without erythema, induration, peau d???orange, nipple retraction, or ulceration. No nipple discharge. No appreciable mass. No overlying skin or vascular abnormality. Breast incision (medial right breast) has healed very well, no retraction or mass. LYMPH NODES: Axillary, clavicular, and cervical lymph node basins without palpable abnormality. This is to document that Marcela Whiting was given the opportunity to have a chief librarian work with blind present during a sensitive examination at today's visit. She declined this offer of a chief librarian work with blind. EXTREMITIES: Warm, well-perfused. No pretibial edema. Left foot drop. BACK: Grossly normal range of motion. SKIN: Warm, no lesion or rash noted on visible skin. NEURO: Alert and oriented, appropriate. Motor and sensory grossly intact. LABS: No pertinent labs. IMAGING: The following images were personally reviewed, including reports and associated films. Findings were discussed with the patient. 12/01/2023 Bilat diag mammo BI-RADS: Category 2: Benign ................................................................................ ............................................................. ASSESSMENT & PLAN: The patient is doing well following breast conservation surgery for right breast cancer. She declined adjuvant radiation therapy. She declined adjuvant endocrine therapy. There are no worrisome constitutional symptoms. No abnormal findings by clinical breast exam or adenopathy. - We discussed the importance of SBE. - Repeat CBE in 12 months, sooner as needed. - Annual mammography is overdue. Patient to call and schedule. - We discussed the role of healthy lifestyle including low-fat diet, limiting alcohol, and frequentexercise in relation to cancer survival. All questions were answered. The patient will follow-up for repeat clinical breast exam in 12 months, sooner if needed. It was a pleasure seeing Marcela Whiting at the Surgery [facility] today. The patient has been instructed to call with any additional questions or concerns. Radha Cottrell MD, MS, [facility] A Member of [employer] [facility] W [phone] F [phone] [address] [place] [address] [email or web address] documented in this encounter Plan of Treatment Upcoming Encounters Date Type Department Care Team (Late st Contact Info) Description 03/23/2025 8:00 AM EST Appointment [facility] [address] [place] [phone] 04/06/2025 10:15 AM EST Office Visit Internal Medicine - [address] [phone] Jessica Torrez NP [address] [place] [address] 03/07/2026 11:30 AM EST Office Visit General Surgery - [place] [address] [facility] [address] [place] [phone] Radha Cottrell MD [address] [place] [address] Scheduled Orders Name Type Priority Associated Diagnoses Orde r Schedule MG Mammo Digital Screening bilat Imaging Routine History of invasive breast cancer Encounter for screening mammogram for malignant neoplasm of breast Expected: 03/08/2025, Expires: 03/08/2026 documented as of this encounter Visit Diagnoses Diagnosis History of invasive breast cancer- Primary Encounter for screening mammogram for malignant neoplasm of breast documented in this encounter Additional Health Concerns Assessment Noted Time PHQ-9 Depression Total Score: 0 08/25/19 25 1:20 PM EDT documented as of this encounter Care Teams Tanker Truck Driver Relationship Specialty Start Date End Date Eugenia Phelps DO [address] [facility] [place] [address] PCP - General 12/11/22 documented as of this encounter
--- NOTE | 2025-03-10 | EMG_ITS ---
Chief complaint: 79-year-old. Had sudden severe pain on left leg in November followed by footdrop. Chronic lower back pain. Diabetic. Reason for referral: Evaluate for peroneal neuropathy versus lumbar radiculopathy Referred by: Fransisco VELEZ Procedure done: Left lower extremity NCS/EMG Precautions and/or limitations: None The limb temperature was monitored continuously and remained between 32-36 degrees C during the performance of the NCS. Nerve Conduction Studies Anti Sensory Summary Table ?Stim Site NR Onset (ms) Norm Onset (ms) Peak (ms) Norm Peak (ms) O-P Amp (?V) Norm O-P Amp Site1 Site2 Delta-0 (ms) Dist (cm) Claudy (m/s) Norm Claudy (m/s) Left Sural Anti Sensory (Lat Mall) Calf NR <4.0 >5.0 Calf Lat Mall 14.0 Right Sural Anti Sensory (Lat Mall) Calf NR <4.0 >5.0 Calf Lat Mall 14.0 Motor Summary Table ?Stim Site NR Onset (ms) Norm Onset (ms) O-P Amp (mV) Norm O-P Amp iAmp (mV) Amp (1st) (%) Site1 Site2 Delta-0 (ms) Dist (cm) Claudy (m/s) Norm Claudy (m/s) Left Peroneal Motor (Ext Dig Brev) Ankle NR <4.0 >2.5 Ankle Ext Dig Brev 0.0 B Fib NR B Fib Ankle 0.0 >40 Poplt NR Poplt B Fib 0.0 >40 Right Peroneal Motor (Ext Dig Brev) Ankle ? 5.2 <4.0 1.8 >2.5 1.7 100.0 Ankle Ext Dig Brev 5.2 0.0 B Fib ? 11.3 0.9 1.0 50.0 B Fib Ankle 6.1 29.0 48 >40 Poplt ? 12.0 0.9 0.9 50.0 Poplt B Fib 0.7 6.0 86 >40 Left Peroneal TA Motor (Tib Ant) Fib Head ? 4.3 <4.2 0.4 0.5 100.0 Fib Head Tib Ant 4.3 0.0 Poplit ? 5.0 <5.7 0.4 0.5 100.0 Poplit Fib Head 0.7 6.0 86 >40.5 Left Tibial Motor (Abd Molina Brev) Ankle ? 6.0 <5 1.5 >2.5 2.0 100.0 Ankle Abd Molina Brev 6.0 0.0 Knee ? 12.6 8.0 10.5 533.3 Knee Ankle 6.6 40.0 61 >40 EMG ?Side Muscle Nerve Root Ins Act Fibs Psw Amp Dur Poly Recrt Int Pat Comment Right AbdHallucis MedPlantar S1-2 Nml Nml Nml Nml Nml 0 Nml Complete Right AntTibialis Dp Br Peron L4-5 Nml Nml Nml Nml Nml 0 Nml Complete Right PostTibialis Tibial L5, S1 Incr 1+ 1+ Incr Incr 0 Nml Complete Right MedGastroc Tibial S1-2 Incr 1+ 1+ Incr Incr 0 Nml Complete Right VastusMed Femoral L2-4 Nml Nml Nml Nml Nml 0 Nml Complete Left AbdHallucis MedPlantar S1-2 Incr 1+ 1+ Nml Nml 0 Nml Complete Left AntTibialis Dp Br Peron L4-5 Incr 1+ 1+ Nml Nml 0 Nml Complete Can not activate Left MedGastroc Tibial S1-2 Nml Nml Nml Nml Nml 0 Nml Complete Left VastusMed Femoral L2-4 Nml Nml Nml Nml Nml 0 Nml Complete Left Peroneus Long Sup Br Peron L5-S1 Incr 1+ 1+ Nml Nml 0 Nml Complete Paraspinal EMG ?Side Muscle Nerve Root Ins Act Fibs Psw Comment Right Lumbar Upper Rami Nml Nml Nml Right Lumbar Mid Rami Nml Nml Nml Right Lumbar Lower Rami Nml Nml Nml Left Lumbar Upper Rami Nml Nml Nml Left Lumbar Mid Rami Nml Nml Nml Left Lumbar Lower Rami Nml Nml Nml FINDINGS: Left peroneal nerve, when recording at EDB, showed absent response. When recording at TA, it showed prolonged distal latency and small amplitude amplitude. Left tibial nerve showed prolonged distal latency, small distal amplitude and normal conduction velocity. Right peroneal nerve showed prolonged distal latency, small amplitude and normal conduction velocity. Bilateral sural nerves showed absent response. Concentric needle EMG was performed in selected muscles of the bilateral lower extremity and lumbar paraspinals. Study revealed signs of electric abnormalities as shown in the table above. Left AH, tibialis anterior and peroneus longus showed increased insertional activity, PSWs and fibrillations. She was not able to fully activate tibialis anterior due to footdrop. Right medial gastrocnemius and posterior tibialis showed increased insertional activity, PSWs and fibrillations, with increased duration and amplitude. No active denervation seen on lumbar paraspinals. IMPRESSION: 1. This is an abnormal study. 2. 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 3. Possibly a focal left peroneal neuropathy at fibular neck, on top of the peripheral neuropathy. 4. Can not rule out a chronic right L5-S1 radiculopathy, although patient does not have any symptoms or footdrop on the right side. CLINICAL COMMENT: We do have to account for age when interpreting this study, as advanced age tends to affect latencies and amplitudes on NCS. Further clinical correlation recommended. Thank you for your kind referral. Lupe Chávez MD, AVELINA Board Certified, [place] Board [employer] and Rehabilitation (ABPMR) Board Certified, [place] Board of Electrodiagnostic Medicine (ABEM) CODIN 11702 x 2 extremities MTDD
--- OUTSIDE RECORDS SUMMARY | 2025-03-10 15:45 | XMS_ITS ---
Author Name [facility] Organization Unknown Care Team Organization Name Specialty Phone Email Start Date End Da te [facility] Termed, [facility] Primary [facility] 07/14/202408/03
--- OUTSIDE RECORDS SUMMARY | 2025-03-10 15:45 | XMS_ITS | Clinical Summary ---
Author Organization [facility] [address] [facility] Building Address [address] [place] [address] Phone Care Team Providers Care Egg Grader Name Role Phone Eugenia Phelps DO Primary Care Provider [phone] Allergies No known active allergies Medications metFORMIN XR (GLUCOPHAGE-XR) 500 mg 24 hr tablet Take 1 tablet (500 mg total) by mouth. 4 Active losartan (COZAAR) 100 mg tabletIndications :Primary hypertension Take 1 tablet (100 mg total) by mouth 1 (one) time each day. 90 each 1 5 Active traZODone (DESYREL) 50 mg tabletIndications :Sleep disturbance TAKE 1 TABLET BY MOUTH AT BEDTIME NEEDED FOR SLEEP. 90 tablet 5 Active allopurinoL (ZYLOPRIM) 300 mg tabletIndications :Chronic gout of right knee, unspecified cause Take 1 tablet (300 mg total) by mouth 1 (one) time each day. 90 each 1 5 03/23/20 25 Active gabapentin (NEURONTIN) 100 mg capsule Take 1 capsule (100 mg total) by mouth 3 (three) times a day. 90 each 5 06/01/19 26 Active Active Problems Problem Noted Date Diagnosed Date Stage 3a chronic kidney disease (CMS/HCC V24, CM S/HCC V28) 12/03/2024 Primary hypertension 03/17/2024 Type 2 diabetes mellitus, wi out long-term current use of insulin ([facility] V24, [facility] V28) 03/17/2024 Chronic gout of right knee 03/17/2024 History of invasive breast cancer 03/17/2024 Encounters Date Type Department Care Team Description 03/08/2025 1:15 PM EST Office Visit General Surgery - [place] [address] [facility] [address] [place] [phone] Radha Mishra MD History of invasive breast cancer (Primary Dx); Encounter for screening mammogram for malignant neoplasm of breast 12/24/2024 5:33 PM EDT - 12/24/2024 11:59 PM EDT Hospital Encounter [facility] [address] [place] [phone] Spondylosis without myelopathy or radiculopathy, lumbar region Discharge Disposition: Home or Self Care 12/20/2024 8:43 AM EDT - 12/20/2024 11:59 PM EDT Hospital Encounter Xray - [place] [address] [place], [place] [phone] Acute pain of left lower extremity Discharge Disposition: Home or Self Care 12/20/2024 8:30 AM EDT Office Visit Internal Medicine - [place] [address] [place] [address], [place] [phone] Dandy Barnes PA Acute pain of left lower extremity (Primary Dx) from Last 3 Months Immunizations Immunization Administration Dates Next Due Influenza Quadravalent, 0.5m l (Fluad) 65yo and older 02/03/2023 Influenza Quadravalent, 0.5m l (Fluzone High-dose) 65yo and older 01/23/2022,01/18/2021,01/31/2020 Influenza trivalent, 0.5mL ( Fluad) 65yo and older 12/30/2016 Influenza trivalent, 0.5mL ( Fluzone High-dose) 65yo and older 12/20/2024 Pfizer SARS-CoV-2 COVID-19, mRNA, LNP-S, preservative free 06/24/2020 Pneumococcal conjugate 13 va lent (Prevnar 13, PCV13) 2mo and older 05/03/2015 Pneumococcal conjugate 20 va lent (Prevnar 20, PCV 20) 2mo and older 05/02/2023,05/16/2022 Pneumococcal polysaccharide 23 valent (Pneumovax 23) 2yo and older 05/02/2023,02/27/2021 RSV, bivalent, protein subun it RSVpreF, 0.5mL, Preservative Free (ABRYSVO) 50yo and older or 32 through 36 wks of 12/24/2023 Tdap Tetanus diptheria acell ular pertussis (Boostrix; Adacel) 7yo and older 07/08/2023 Zoster recombinant (Shingrix ) 19yo and older 12/24/2023 Surgical History Surgery Date Site/Laterality Comments OTHER SURGICAL HISTORY 09/06/2021 Right PROCEDURE: HISTORY OTHER; COMMENT: partial mastectomy OTHER SURGICAL HISTORY N/A PROCEDURE: ME COLONOSCOPY FLX W/ENDOSCOPIC MUCOSAL RESECTION; COMMENT: 2012 malignant polyp found durin colonoscopy Medical History Medical History Date Comments Essential (primary) hypertension DX:Essential (primary) hypertension Type 2 diabetes mellitus wit hout complications (CMS/HCC V24, CMS/[facility] V28) DX:Type 2 leslie betes mellitus without complications ([facility]) Gout DX:Gout Family History Medical History Relation [...] Record ed Within the last 3 months, lizet matute many times did you visit the emergency [...] for your loved ones. For example, child care nurse or elderly care for an older adult? [...] F) 03/08/2025 12:56 PM EST Respiratory Rate 16 12/20/2024 8:15 AM EDT Oxygen Saturation 99% 05/12/2024 10:19 AM EST Inhaled Oxygen Concentration - - Weight 75.9 kg (167 lb 6.4 oz) 03/08/2025 12:56 PM EST Height 165.1 cm (5' 5 ) 03/08/2025 12:56 PM EST Body Mass Index 27.86 03/08/2025 12:56 PM EST Plan of Treatment Upcoming Encounters Date Type Department Care Team (Late st Contact Info) Description 03/23/2025 8:00 AM EST [facility]ointment [facility] [address] [place] [phone] 04/06/2025 10:15 AM EST Office Visit Internal Medicine - [facility] [address] [place] [address] Jessica Torrez NP [address] [place] [address] 03/07/2026 11:30 AM EST Office Visit General Surgery - [place] [address] [facility] [address] [place] [phone] Radha Mishra MD [address] [place] [phone] Health Maintenance Due Date Last Done Comments Diabetes: Annual Foot Exam 10/13/1955 Medicare Annual Wellness Visit 04/07/2022 Zoster Vaccines (2 of 2) 02/18/2024 12/24/2023 COVID-19 Vaccine ( season) 2025 02/14/2023, 03/15/2022, 08/03/2021, Additional history exists Diabetes: Blood Sugar Control Test (HGBA1C) 02/25/2025 08/26/2024, 03/19/2024, 12/26/2023, Additional history exists Diabetes: Annual Urine Albumin-Creatinine Ratio (uACR) 03/19/2025 03/19/2024 Social Influencers of Health Screening 08/24/2025 08/24/2024 Diabetes: Annual GFR (Glomerular Filtration Rate) 08/26/2025 08/26/2024, 03/19/2024, 12/26/2023 Hypertension/CHF/CAD Annual BMP Blood Test 08/26/2025 08/26/2024, 03/19/2024, 12/26/2023 Diabetes: Annual Retina Eye Exam 09/07/2025 09/07/2024, 08/25/2024 Falls Risk Assessment 12/20/2025 12/20/2024 Cholesterol Screening (Lipid Panel) 03/19/2029 03/19/2024, 07/11/2023, 07/11/2023 Osteoporosis Screening (Bone Density Screening) 12/28/2031 12/27/2021, 04/09/2019 DTaP,Tdap,and Td Vaccines (2 - Td or Tdap) 07/07/2033 07/08/2023 Pneumococcal Vaccine: 50+ Years Completed 05/02/2023, 05/02/2023, 05/16/2022, Additional history exists RSV Immunization Adult Patients Completed 12/24/2023 Depression Screening Completed 12/15/2024 Influenza Vaccine Completed 12/20/2024, , 01/23/2022, Additional history exists HIB Vaccines Aged Out No longer eligi [...] age to complete this topic Meningococcal B Vaccine Aged Out No l onger eligible based on patient's age to complete this topic RSV Immunization Patients Under 20 months Aged Out No longer eligible based on patient's age to complete this topic Varicella Vaccines Aged Out No longer eligible based on patient's age to complete this topic Procedures Procedure Name Priority Date/Time Associated Diagnosis Comments MR LUMBAR SPINE WO CONTRAST Routine 12/24/2024 6:28 PM EDT Spondylosis without myelopathy or radiculopathy, lumbar region XR LUMBAR SPINE 4+ VIEWS Routine 12/20/2024 8:52 AM EDT Acute pain of left lower extremity EXTERNAL DIABETIC RETINA EYE EXAM 09/07/2024 BASIC METABOLIC PANEL Routine 08/26/2024 9:07 AM EDT Primary hypertension HEMOGLOBIN A1C Routine 08/26/2024 9:07 AM EDT Type 2 diabetes mellitus without complication, without long-term current use of insulin ([facility] V24, [facility] V28) MICROALBUMIN CREATININE URINE RATIO Routine 03/19/2024 9:59 AM EST Type 2 diabetes mellitus with other specified complication, without long-term current use of insulin (CMS/[facility] V24, CMS/[facility] V28) LIPID PANEL WITH REFLEX TO DIRECT LDL Routine 03/19/2024 9:59 AM EST Type 2 diabetes mellitus with other specified complication, without long-term current use of insulin (CMS/[facility] V24, CMS/[facility] V28) KIM DEXA AXIAL SKELETON Routine 12/27/2021 10:04 AM EDT Encounter for screening for osteoporosis from Last 3 Months or Most Recently Relevant to Health Maintenance Results * MR Lumbar Spine wo Contrast (12/24/2024 6:28 PM EDT) Anatomical Region Laterality Modality L-spine, Spine Magnetic Resonan ce 12/28/2024 12:3 8 PM EDT Impressions 12/28/2024 12:46 PM EDT Degenerative changes of the lumbar spine as detailed above. -------- FINAL REPORT -------- Dictated By: Renzo Munoz Dictated Date: 12/28/2024 12:38 ET Assigned Physician: Renzo Munoz Reviewed and Electronically Signed By: Renzo Munoz Signed Date: 12/28/2024 12:46 ET Workstation ID: [id number] Transcribed By: Self Edit Transcribed Date: 12/28/2024 12:38 ET Narrative 12/28/2024 12:46 PM EDT PROCEDURE: MRI of the lumbar spine without contrast. TECHNIQUE: Multiplanar multisequence MRI of the lumbar spine without intravenous contrast administration. HISTORY: Radiculopathy spondylosis lumbar COMPARISON: Radiograph dated 12/20/2024. FINDINGS: Partially visible colonic diverticulosis. 2.3 cm cyst exophytic from the left kidney. Mild atrophy of the sacral paraspinous musculature. No compression deformity. No concerning bony lesion. Modic endplate changes at L4-5 and L5-S1. Normal position of the conus at L1. Lumbar disc levels: L1-2: Small anterior endplate osteophytes. Minimal endplate irregularity. Minimal degenerative irregularity of the facet joints, left greater than right. No spinal or foraminal stenosis. L2-3: Minimal anterior endplate osteophytes and minimal endplate irregularity. Minimal bilateral facet arthropathy with mild bilateral ligamentum flavum hypertrophy. No spinal or foraminal stenosis. L3-4: Small anterior endplate osteophytes and mild endplate irregularity. Minimal symmetric disc bulge. Mild bilateral facet arthropathy and ligamentum flavum hypertrophy. Minimal spinal stenosis. No foraminal stenosis. L4-5: Moderate disc space height loss and endplate irregularity. Small anterior endplate osteophytes. Small symmetric disc bulge with a small amount of inferiorly extruded disc material in the central region. Mild bilateral facet arthropathy and ligamentum flavum hypertrophy. Mild spinal stenosis. Mild right foraminal stenosis. L5-S1: Moderate disc space height loss and endplate irregularity. Moderate anterior endplate osteophytes. Small irregular disc osteophyte complex, most prominent in the central region. Minimal degenerative changes of the facet joints. No spinal or foraminal stenosis. Procedure Note Renzo Munoz MD - 12/28/2024 PROCEDURE: MRI of the lumbar spine without contrast. TECHNIQUE: Multiplanar multisequence MRI of the lumbar spine withoutintravenous contrast administration. HISTORY: Radiculopathy spondylosis lumbar COMPARISON: Radiograph dated 12/20/2024. FINDINGS: Partially visible colonic diverticulosis. 2.3 cm cyst exophytic from theleft kidney. Mild atrophy of the sacral paraspinous musculature. No compression deformity. No concerning bony lesion. Modic endplatechanges at L4-5 and L5-S1. Normal position of the conus at L1. Lumbar disc levels: L1-2: Small anterior endplate osteophytes. Minimal endplate irregularity.Minimal degenerative irregularity of the facet joints, left greater thanright. No spinal or foraminal stenosis. L2-3: Minimal anterior endplate osteophytes and minimal endplateirregularity. Minimal bilateral facet arthropathy with mild bilateralligamentum flavum hypertrophy. No spinal or foraminal stenosis. L3-4: Small anterior endplate osteophytes and mild endplate irregularity.Minimal symmetric disc bulge. Mild bilateral facet arthropathy andligamentum flavum hypertrophy. Minimal spinal stenosis. No foraminalstenosis. L4-5: Moderate disc space height loss and endplate irregularity. Smallanterior endplate osteophytes. Small symmetric disc bulge with a smallamount of inferiorly extruded disc material in the central region. Mildbilateral facet arthropathy and ligamentum flavum hypertrophy. Mildspinal stenosis. Mild right foraminal stenosis. L5-S1: Moderate disc space height loss and endplate irregularity.Moderate anterior endplate osteophytes. Small irregular disc osteophytecomplex, most prominent in the central region. Minimal degenerativechanges of the facet joints. No spinal or foraminal stenosis. IMPRESSION: Degenerative changes of the lumbar spine as detailed above. -------- FINAL REPORT -------- Dictated By: Renzo Munoz Dictated Date: 12/28/2024 12:38 ET Assigned Physician: Renzo Munoz Reviewed and Electronically Signed By: Renzo Munoz Signed Date: 12/28/2024 12:46 ET Workstation ID: [id number] Transcribed By: Self Edit Transcribed Date: 12/28/2024 12:38 ET us Fransisco VELEZ IMG MRI PROCEDURES Final Resul t * XR Lumbar Spine 4+ Views (12/20/2024 8:52 AM EDT) Anatomical Region Laterality Modality Spine, L-spine Radiographic Skylar ging 12/20/2024 11:4 7 AM EDT Narrative 12/20/2024 11:54 AM EDT Lumbosacral spine, 5 views. History left lower extremity pain. Vertebral bodies are maintained in height. There is narrowing of the disc spaces more prominent at L4-5 and L5-S1 levels. There are discogenic osteophytes and degenerative changes in the facet joints at multiple levels more prominent at L4-5 and L5-S1 levels. There is no evidence of fractures or dislocations. CONCLUSIONS: Multilevel bony and discs degenerative changes. -------- FINAL REPORT -------- Dictated By: Yahaira Davison Dictated Date: 12/20/2024 11:47 ET Assigned Physician: Yahaira Davison Reviewed and Electronically Signed By: Yahaira Davison Signed Date: 12/20/2024 11:54 ET Workstation ID: [id number] Transcribed By: Self Edit Transcribed Date: 12/20/2024 11:47 ET Procedure Note Yahaira Davison MD - 12/20/2024 Lumbosacral spine, 5 views. History left lower extremity pain. Vertebral bodies are maintained in height. There is narrowing of the discspaces more prominent at L4-5 and L5-S1 levels. There are discogenicosteophytes and degenerative changes in the facet joints at multiplelevels more prominent at L4-5 and L5-S1 levels. There is no evidence offractures or dislocations. CONCLUSIONS: Multilevel bony and discs degenerative changes. -------- FINAL REPORT -------- Dictated By: Yahaira Davison Dictated Date: 12/20/2024 11:47 ET Assigned Physician: Yahaira Davison Reviewed and Electronically Signed By: Yahaira Davison Signed Date: 12/20/2024 11:54 ET Workstation ID: [id number] Transcribed By: Self Edit Transcribed Date: 12/20/2024 11:47 ET Dandy VELEZ IMG XR PROCEDURES Final Result * External Diabetic Retina Eye Exam Report (09/07/2024) Anatomical Region Laterality Modality Ultrasound us Provider [facility] US PROCEDURES Final Result * (ABNORMAL) Hemoglobin A1c (08/26/2024 9:07 AM EDT) Hemoglobin A1C 6.6(H) <6.5 % LAB CHEMISTRY METHOD 08/26/2024 2:01 PM EDT [facility] Mean Bld Glu Estim. 143 mg/dL LAB CHEMISTRY METHOD 08/26/2024 2:01 PM EDT [facility] Blood Venous blood specimen / Unknown Venipuncture / Unknown 08/26/2024 9:07 AM EDT 08/26/2024 9:07 AM EDT Jessica Torrez NP LAB BLOOD ORDERABLES Final Resul t [facility] [address] [place] [address], * (ABNORMAL) Basic metabolic panel (08/26/2024 9:07 AM EDT) Pathologist [facility] Sodium 144 133 - 145 mmol/L LAB CHEMISTRY METHOD 08/26/2024 12:51 PM [facility] Potassium 4.5 3.5 - 5.5 mmol/L LAB CHEMISTRY METHOD 08/26/2024 12:51 PM [facility] Chloride 110 96 - 110 mmol/L LAB CHEMISTRY METHOD 08/26/2024 12:51 PM [facility] CO2 26 21 - 32 mmol/L LAB CHEMISTRY METHOD 08/26/2024 12:51 PM [facility] Anion Gap 8 3 - 11 LAB CHEMISTRY METHOD 08/26/2024 12:51 PM [facility] Glucose 101(H) 70 - 100 mg/dL LAB CHEMISTRY METHOD 08/26/2024 12:51 PM [facility] BUN 18 5 - 25 mg/dL LAB CHEMISTRY METHOD 08/26/2024 12:51 PM EDT [facility] Creatinine 1.05 0.50 - 1.10 mg/dL LAB CHEMISTRY METHOD 08/26/2024 12:51 PM EDT [facility] eGFR 54(L) >=60 mL/min/1. 73m2 LAB CHEMISTRY METHOD 08/26/2024 12:51 PM EDT [facility] Comment:Calculation based on the Chronic Kidney Disease Epidemiology Collaboration (CKD-EPI) equation refit without adjustment for race. BUN/Creatinine Ratio 17.1 LAB CHEMISTRY METHOD 08/26/2024 12:51 PM T [facility] Calcium 9.2 8.5 - 10.5 mg/dL LAB CHEMISTRY METHOD 08/26/2024 12:51 PM [facility] Blood Venous blood specimen / Unknown Venipuncture / Unknown 08/26/2024 9:07 AM EDT 08/26/2024 9:07 AM EDT us Jessica Torrez NP LAB BLOOD ORDERABLES Final Resul t [facility] [address] [place] [address], * Lipid panel with reflex to direct LDL (03/19/2024 9:59 AM EST) Cholesterol 164 0 - 200 mg/dL LAB CHEMISTRY METHOD 03/19/2024 11:58 AM [facility] Triglycerides 145 0 - 150 mg/dL LAB CHEMISTRY METHOD 03/19/2024 11:58 AM EST [facility] HDL 48 >=40 mg/dL LAB CHEMISTRY METHOD 03/19/2024 11:58 AM EST [facility] LDL Calculated 87 0 - 100 mg/dL LAB CHEMISTRY METHOD 03/19/2024 11:58 AM [facility] VLDL Cholesterol Bryan 29 mg/dL LAB CHEMISTRY METHOD 03/19/2024 11:58 AM EST [facility] Non HDL Chol. (LDL+VLDL) 116 <145 mg/dL LAB CHEMISTRY METHOD 03/19/2024 11:58 AM EST [facility] Chol/HDL Ratio 3.4 0.0 - 4.4 LAB CHEMISTRY METHOD 03/19/2024 11:58 AM EST [facility] Blood Venous blood specimen / Unknown Venipuncture / Unknown 03/19/2024 9:59 AM EST 03/19/2024 9:59 AM EST Eugenia Phelps DO LAB BLOOD ORDERABLES Final Res ult [facility] [address] [place] [address], [place] [phone] * (ABNORMAL) Microalbumin creatinine urine ratio (03/19/2024 9:59 AM EST) Creatinine, Urine 175.0 mg/dL LAB CHEMISTRY METHOD 03/19/2024 12:27 PM [facility] Microalb, Ur 36.2(H) 0.0 - 29.0 mg/L LAB CHEMISTRY METHOD 03/19/2024 12:27 PM [facility] Microalb/Crea t Ratio 21 <30 mg/g creat LAB CHEMISTRY METHOD 03/19/2024 12:27 PM [facility] Urine Urine specimen obtained by clean catch procedure / Unknown Non-blood Collection / Unknown 03/19/2024 9:59 AM EST 03/19/2024 9:59 AM EST Eugenialeonides Phelps DO LAB URINE ORDERABLES Final Res ult [facility] [address] [place] [address], [place] [phone] * KIM DEXA AXIAL SKELETON (12/27/2021 10:04 AM EDT) Anatomical Region Laterality Modality Mammography 12/27/2021 9:22 AM EDT Narrative 12/27/2021 10:04 AM EDT [facility] Diagnostic Imaging Department [address] [place], [place] [address] Patient: INO GIBBS D.O.B./Age/Sex: 1945 - 76 - F Unit#: [id number] Location/Status: [facility]/REG CLI [facility]em[facility] Ordering Physician: KATIUSKA WELLINGTON MD [facility] Dexa Axial Skeleton - 12/27/21941 HISTORY: The patient is a 76-year-old postmenopausal female with clinical concern for metabolic bone disease. FINDINGS: Dual [...] of age matched controls. This yields a T-score of -0.5 and a Z-score of 0.2 and there is therefore no evidence of osteoporosis or osteopenia here. However, the T-score of the right femoral neck is -1.7 and that of the left femoral neck is -1.2 which is diagnostic of osteopenia. IMPRESSION: 1. Osteopenia. There has been a decrease of 3.9% in bone mineral density in the lumbar spine since the prior examination of 04/09/2019. There has been an increase of 2.5% in bone mineral density in the right femur and an increase of 1.5% in bone mineral density in the left femur. 2. FRAX analysis yields a 10-year probability of major osteoporotic fracture of 5.9% and a 10-year probability of hip fracture of 1.4%. Code 08473 Dictating Physician: ENID LONG MD Electronically Signed by: ENID LONG MD Dic Date/Time: 12/27/21 1002 Sign date/Time: 12/27/21 1004 Procedure Note Enid Long MD - 04/24/2022 [facility] Diagnostic Imaging Department [address] [place] [address] Patient: INO GIBBS./Age/Sex: 1945 - 76 - F Unit#: [id number] Location/Status: [facility] Mnemonic/Ordering [facility] Ordering Physician: KATIUSKA WELLINGTON MD Kim Dexa [...] density of the femurs bilaterally is 0.950 gm/hn0xuzrp is 94% of that of young normals [...] probability of hip fracture of 1.4%. Code 78676 Dictating Physician: ENID LONG MD Electronically Signed by: ENID LONG MD Dic Date/Time: 12/27/21 1002 Sign date/Time: 12/27/21 1004 Katiuska Wellington MD IMG BI PROCEDURES Final Result from Last 3 Months or Most Recently Relevant to Health Maintenance Insurance * Guarantor: Ino Gibbs Account Type Relation to Patient Date of Phone Billing Address Personal/Family Self 1945 [address] [facility] [address] [facility] [address] [employer] Care Teams Egg Grader Relationship Specialty Start Date End Date Eugenia Phelps DO [address] [facility] [place] [address] PCP - General 12/11/22
--- OUTSIDE RECORDS SUMMARY | 2025-03-10 15:45 | XMS_ITS | Clinical Summary ---
Author Organization [facility] Address [address] [place] [address] Care Team Providers Care Automatic Vulcanizing Operator Name Role Phone Silviano Wellington MD Primary Care Provider [phone] Allergies No known active allergies Medications Medication [...] 89 09/19/2021 1:56 PM EDT Temperature 37 C (98.6 F) 09/19/2021 1:56 PM EDT Respiratory Rate - [...] 1-dose 75+ series) 10/13/2018 Influenza Vaccine (#1) 2025 Hepatitis B Vaccines Aged Out No long er eligible based on patient's age to complete this topic RSV Ped < 20 months Aged Out No longe r eligible based on patient's age to complete this topic Care Teams Automatic Vulcanizing Operator Relationship Specialty Start Date End Date Silviano Wellington MD [address] [place] [address] PCP - General Internal Medicine 12/20/19
--- OUTSIDE RECORDS SUMMARY | 2025-03-10 15:45 | XMS_ITS | Data Portability ---
Author Organization [place] [facility], Allergy Address [address] [place] [phone] Care Team Providers Care Advanced Seal Delivery System Name Role Phone LAMONT ANDRADE Primary Care Provider Assessment Encounter Date Assessment Date Assessment LastModified by Organization Details LastModified Time 01/07/2024 01/07/2024 78-year-old female with hearing difficulties right more than left. She notes difficulty in mu-ism and background situations. No tinnitus or vertigo. Audiogram reviewed. Very minimal asymmetry in the mid frequencies. Suggest amplification and follow-up testing in 1 year [email or web address] Not available 01/07/2024 10:39:17 Plan of Treatment [...] Organization Details Recorded Time Abnormal auditory perception 42805790 Active 2023 HIMANSHU GUERRA MD [address] [facility] [address], [place], [address] [facility] [place] [facility] 09:39:31 Obstructive sleep apnea syndrome 55266392 Active 2023 HIMANSHU GUERRA MD [address] [facility], [place], [phone], [facility] [place] 09:39:35 Sensorineural hearing loss of bilateral ears 150880044 Active 2023 NICK ORNELAS [place], [facility] [address] [facility], [place], [address], [facility] - [facility] [place] 10:08:11 Problem Notes None recorded. Procedures Surgical History Date Name Laterality Status Provider Name and Address Organization Details Recorded Time Comp Audio with Tymps - 29423 & 11960 completed NICK ORNELAS [place], [facility] [address] [facility] [[email or web address] [address], [place], [address], [place] - [facility] [place] 01/07/2024 10:07:45 excision of breast completed Aniya Pablo [place] - [facility] [place] 01/07/2024 09:06:18 partial resection of colon completed Aniya Pablo [place] [facility] [place] 01/07/2024 09:06:47 Imaging Results None recorded. Procedure Notes None recorded. Medical Equipment None [...] Available Not Available Vitals Date Recorded Body mass index (BMI) Provider Name and Address Organization Details Last Updated DateTime 01/07/2024 29 kg/m2 HIMANSHU KLINE MD [address] [place] [address], [phone], [place] [facility] [place] [facility] 01/07/2024 09:40:05 Date Recorded Body height Body weight Provider Name and Address Organization Details Last Updated DateTime 01/07/2024 162.56 cm 97087.11 g Aniya Pablo [place] [facility] 01/07/2024 09:02:25 Social History None recorded. Functional Status None recorded. Mental Status None recorded. Family History Nothing Reported. Medical History Condition Response Diabetes Y Cancer Y Hypertension Y Gynecological HistoryNo gynecological history recorded. Obstetrics History GPAL:G 0 P 0 0 0 0 Past Encounters Encounter ID Performer Location Encounter Start Date Encounter Closed Date Diagnosis/Indication Diagnosis SNOMED-CT Code Diagnosis ICD10 Code Diagnosis IMO Codes Diagnosis Note [id number] HIMANSHU KIRBY MD [facility] [address] [address] 01/07/2024 08:48:26 01/07/2024 10:43:50 Abnormal auditory perception 09948292 H93.291 Obstructiv e sleep apnea syndrome 83314376 G47.33 Consider weight loss and positionin g therapy Sensorineu ral hearing loss of bilateral ears 792769662 H90.3 Audiologic al evaluation results: Right ear: Normalorde rline normal sloping to mild to moderately severe SNHL with excellent word recognitio n. Left ear: Borderline normal sloping to mild SNHL dropping to severe with excellent word recognitio n. Tympanomet ry: Right Ear:Type A Left Ear:Type ARec.: Trial amplificat ion Health Concerns Section Related Observation LastModified by Organization Mukesh key LastModified Time None Recorded Concern Status LastModified by Organization Details LastModified Time None Recorded Advance Directives Directive None Recorded Payers Insurance Date Sequence Insurance Name Policy Number Policy Huerta Covered Member ID Huerta Member ID Guarantor Name 01/07/2024 1 [facility] - MEDICARE PREFERRED (MEDICARE REPLACEMENT PPO) [id number] Marcela Whiting [id number] Marcela Whiting Notes Date Note Type Note Provider Name and Address Organization Details Recorded Time 01/07/2024 text/html Notes HL right more than left for more than one year. She denies tinnitus or vertigo. History of sleep apnea but intolerant of CPAP. HIMANSHU KLINE MD [address] [place] [address], [place], [address], [facility] - [facility] 01/07/2024 10:39:31 OBGyn Episode No OBEpisode recorded.
== END 2025-03-10 12:49 | disposition home or self-care (01) ==
LOC: HO.NEURO 12:48
PROVIDERS: PCP Internal Medicine; Visit Provider Physician Assistant
DX: M54.16 Radiculopathy, lumbar region (principal); M21.372 Foot drop, left foot; E11.9 Type 2 diabetes mellitus without complications
CPT/HCPCS: 95886; 95909

== ENCOUNTER → 2025-03-10 13:15 | Outpatient (BNV) | payer MEDICARE, SELFPAY | PROVIDERS: PCP Internal Medicine; Visit Provider Physical Medicine & Rehabilitation | DX: G62.89 Other specified polyneuropathies (principal) | CPT/HCPCS: 95886; 95909 ==